=== PATIENT | female | born 1985 | race Caucasian/White ===

== ENCOUNTER 2020-11-04 00:43 | Emergency (ER) | payer OTHER ==
[~2020-11-04] VITALS: Ht 167.6 cm; Wt 65.8 kg
[2020-11-04 00:45] VITALS: BP_SYST 130; BP_SYST 142; BP_DIAS 27; BP_DIAS 81
[2020-11-04] MEDS ORDERED: ADACEL VIAL IM ONE ×2 (01:00→02:06)
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
--- NOTE | 2020-11-04 01:16 | DIREP ---
PROCEDURE:XRAY FOOT MIN 3 VWS-RT COMPARISON:None. INDICATIONS:crush injury FINDINGS: BONES:Nondisplaced fracture involving the base of the 2nd proximal phalanx. No additional fractures seen. JOINTS:Normal. SOFT TISSUES:Second digit soft tissue swelling. OTHER:No additional findings. CONCLUSION:Nondisplaced fracture of the base of the 2nd proximal phalanx with surrounding soft tissue swelling. Dictated by: Emmanuel Soler DO on 11/04/2020 at 01:12 AM
--- NOTE | 2020-11-04 01:45 | NUR ---
RT GREAT TOE 3-4 INCH LACERATION CLEANED WITH NS AND SUTURED WITH 4.0 ETHILON- COVERED WITH NON-ADHERING DSG AND WRAPPED IN KERLIX
--- NOTE | 2020-11-04 02:19 | NUR ---
2ND AND 3RD TOE CONNIE TAPED
== END 2020-11-04 02:33 | disposition home or self-care (01) ==
LOC: EDBD 00:43 → ER 00:43
DX: S92.511A Displaced fracture of proximal phalanx of right lesser toe(s), initial encounter for closed fracture (principal); S91.311A Laceration without foreign body, right foot, initial encounter; F17.210 Nicotine dependence, cigarettes, uncomplicated; V03.99XA Pedestrian with other conveyance injured in collision with car, pick-up truck or van, unspecified whether traffic or nontraffic accident, initial encounter; Y93.89 Activity, other specified; Y92.89 Other specified places as the place of occurrence of the external cause; Y99.8 Other external cause status
CPT/HCPCS: 12002; 90471; 90715; 99283; 73630-RT